=== PATIENT | female | born 1990 | race Caucasian/White ===

== ENCOUNTER 2018-09-18 19:54 | Emergency (ER) | payer SELFPAY ==
--- NOTE | 2018-09-18 20:07 | PDOC ---
Rapid Medical Evaluation Time Seen by Provider: 09/18/18 20:06 Medical Evaluation: Allergies Allergy/AdvReac Type Severity Reaction Status Date / Time No Known Allergies Allergy Verified 04/13/18 21:27 09/18/18 20:06 I performed a brief in-person evaluation of this patient. Chief complaint: RUQ pain, n/v, hx gallstones Pertinent physical exam findings: RUQ tenderness I have ordered the following: Labs, u/s Patient will proceed to the ED for further evaluation. Discharge Disposition - Diagnosis Right upper quadrant abdominal pain - Referrals - Patient Instructions - Post Discharge Activity
[2018-09-18 20:10] VITALS: TEMP 97.8; BMI 35.4
[2018-09-18 20:38] LABS: BASO % 0.5 % (0-2.0); EOS % 2.6 % (0-4.5); HEMATOCRIT 35.2 % (32.4-45.2); HEMOGLOBIN 12.4 GM/dL (10.7-15.3); MCH 27.8 pg (25.7-33.7); MCHC 35.1 g/dl (32.0-36.0); MEAN CELL VOLUME 79.1 fl (80-96); MEAN PLT VOLUME 8.2 fl (7.5-11.1); MONO % 6.6 % (3.8-10.2); NEUT % 60.3 % (42.8-82.8); PLATELET COUNT 263 K/MM3 (134-434); RBC 4.45 M/mm3 (3.60-5.2); RDW 14.4 % (11.6-15.6); WHITE BLOOD COUNT 10.4 K/mm3 (4.0-10.0)
--- NOTE | 2018-09-18 21:08 | PDOC ---
History of Present Illness - General Chief Complaint: Pain, Acute Stated Complaint: NAUSEA/VOMITING Time Seen by Provider: 09/18/18 20:06 History Source: Patient Exam Limitations: No Limitations - History of Present Illness Travel History: No Initial Comments: 09/18/18 21:30 HISTORY OF PRESENT ILLNESS: This a 28-year-old female denies medical history presents emergency department for evaluation of right upper quadrant pain after eating dinner tonight. Patient reports she has had similar pain in the past but at unremarkable evaluations for gallbladder disease. Patient reports this pain is worse than her usual pain and has lasted longer. Her usual pain lasts approximately 30 minutes this episode is been present for 2-1/2 hours. She reports having one episode of undigested food stuff vomitus. She denies fevers, chills, chest pain, shortness of breath. No recent travel or sick contacts. PAST MEDICAL HISTORY: Denies past medical history SURGICAL HISTORY: Denies ALLERGIES: No known drug allergies REVIEW OF SYSTEMS General/Constitutional: Denies fever or chills. Denies weakness, weight change. HEENT: Denies change in vision. Denies ear pain or discharge. Denies sore throat. Cardiovascular: Denies chest pain or shortness of breath. Respiratory: Denies cough, wheezing, or hemoptysis. Gastrointestinal: See HPI Genitourinary: Denies dysuria, frequency, or change in urination. Musculoskeletal: Denies joint or muscle swelling or pain. Denies neck or back pain. Skin and breasts: Denies rash or easy bruising. Neurologic: Denies headache, vertigo, loss of consciousness, or loss of sensation. Psychiatric: Denies depression or anxiety. Endocrine: Denies increased thirst. Denies abnormal weight change. Hematologic/Lymphatic: Denies anemia, easy bleeding, or history of blood clots. Allergic/Immunologic: Denies hives or skin allergy. Denies latex allergy. PHYSICAL EXAM General Appearance: Well-appearing, appropriately dressed. No apparent distress , no intoxication. Respiratory/Chest: Lungs CTAB. No shortness of breath, chest tenderness, respiratory distress, accessory muscle use. No crackles, rales, rhonchi, stridor , wheezing, dullness Cardiovascular: RRR. S1, S2. No JVD, murmur, bradycardia, tachycardia. Gastrointestinal/Abdominal: Normal bowel sounds. Abdomen soft, non-distended. No tenderness or rebound tenderness. No organomegaly, pulsatile mass, guarding, hernia, hepatomegaly, splenomegaly. Musculoskeletal/Extremities: Normal inspection. FROM of all extremities, normal capillary refill. Pelvis Stable. No CVA tenderness. No tenderness to extremities, pedal edema, swelling, erythema or deformity. Integumentary: Appropriate color, dry, warm. No cyanosis, erythema, jaundice or rash Past History - Past Medical History Allergies/Adverse Reactions: Allergies Allergy/AdvReac Type Severity Reaction Status Date / Time No Known Allergies Allergy Verified 09/18/18 20:08 Home Medications: Ambulatory Orders Naproxen 500 mg PO BID PRN #20 tablet 04/14/18 Asthma: No Cancer: No Cardiac Disorders: No COPD: No Diabetes: No GI Disorders: Yes (gallstones) HTN: No Seizures: No Thyroid Disease: No - Immunization History Immunization Up to Date: Yes - Suicide/Smoking/Psychosocial Hx Smoking History: Never smoked Have you smoked in the past 12 months: No Information on smoking cessation initiated: No Hx Alcohol Use: No Drug/Substance Use Hx: No Substance Use Type: None Hx Substance Use Treatment: No Abd/GI Specific PMHX - Complaint Specific PMHX Colitis: No Diverticulitis: No Gall Bladder Disease: No GERD: No Hepatitis: No Irritable Bowel Synd (IBS): No Pancreatitis: No GI Ulcer Disease: No *Physical Exam - Vital Signs Last Vital Signs Temp Pulse Resp BP Pulse Ox 97.8 F 78 16 126/68 100 09/18/18 20:09 09/18/18 20:09 09/18/18 20:09 09/18/18 20:09 09/18/18 20:09 Moderate Sedation - Procedure Monitoring Vital Signs: Procedure Monitoring Vital Signs Temperature 97.8 F 09/18/18 20:09 Pulse Rate 78 09/18/18 20:09 Respiratory Rate 16 09/18/18 20:09 Blood Pressure 126/68 09/18/18 20:09 O2 Sat by Pulse Oximetry (%) 100 09/18/18 20:09 ED Treatment Course - LABORATORY CBC & Chemistry Diagram: 09/18/18 20:13 09/18/18 20:13 - ADDITIONAL ORDERS Additional order review: Laboratory Results 09/18/18 20:13 Serum , Qual Negative 09/18/18 20:13 RBC 4.45 MCV 79.1 L MCHC 35.1 RDW 14.4 MPV 8.2 Neutrophils % 60.3 Lymphocytes % 30.0 Monocytes % 6.6 Eosinophils % 2.6 Basophils % 0.5 Medical Decision Making - Medical Decision Making 09/18/18 21:30 A/P: 28-year-old female with right upper quadrant pain starting approximately 30 minutes after eating a meal today. Labs, urine, ultrasound Ultrasound as read by Dr. Cline: Multiple gallbladder calculi are seen. Gallbladder appears slightly overdistended. No gallbladder wall edema or pericholecystic fluid is identified. Common bile duct diameter appears unremarkable measuring 0.5 cm. No gross intraductal calculus is identified within the limitations of transabdominal sonography. Overall, there is been no obvious interval change in comparison to a prior ultrasound study of 04/13/2018. Laboratory testing is notable for a white blood cell count 10.4 without a shift. This is likely reactive in nature. Remainder of laboratory testing is unremarkable. Given patient has a benign abdominal exam negative Arevalo's we'll discharge the patient home with referral for general surgery. *DC/Admit/Observation/Transfer Diagnosis at time of Disposition: Cholelithiases Qualifiers: Cholelithiasis location: gallbladder Cholecystitis presence: without cholecystitis Biliary obstruction: without biliary obstruction Qualified Code(s) : K80.20 - Calculus of gallbladder without cholecystitis without obstruction - Discharge Dispostion Disposition: HOME Condition at time of disposition: Fair Decision to Admit order: No - Referrals Referrals: Og Koo MD [Staff Physician] - - Patient Instructions Additional Instructions: Ultrasound of your gallbladder shows gallstones. Been given a referral for who is a general surgeon please follow-up for evaluation of gallbladder removal. Her symptoms may return if he do not access. Return to emergency department for any new or worsening pain. Thank you very much for choosing us to provide your emergent health care needs. La ecografa de smith vescula biliar muestra clculos biliares. Recibi laverne referencia para el , que es un cirujano general, kari un seguimiento para evaluar la extraccin de la vescula biliar. Stephenie sntomas pueden volver si l no accede. Regrese al departamento de emergencias para cualquier dolor nuevo o que empeore. Muchas miguel angel por elegirnos para satisfacer stephenie necesidades de atencin mdica de emergencia. - Post Discharge Activity
[2018-09-18 21:10] LABS: ALBUMIN 3.6 g/dl (3.4-5.0); ALK PHOS 91 U/L (45-117); ANION GAP 9 MMOL/L (8-16); BILIRUBIN,TOTAL 0.3 mg/dL (0.2-1); BLOOD UREA NITROGEN 8 mg/dL (7-18); CALCIUM 8.6 mg/dL (8.5-10.1); CHLORIDE 101 mmol/L (98-107); CO2 26 mmol/L (21-32); CREATININE 0.6 mg/dL (0.55-1.3); GLUCOSE,RANDOM 95 mg/dL (74-106); LIPASE 204 U/L (73-393); POTASSIUM 3.7 mmol/L (3.5-5.1); SGOT/AST 20 U/L (15-37); SGPT/ALT 27 U/L (13-61); SODIUM 136 mmol/L (136-145)
[2018-09-18] MEDS ORDERED: LIDOCAINE VISCOUS 2% ORAL/TOP 20 ML UNIT-DOSE CUP PO ONE (21:31)
[2018-09-18] MEDS ORDERED: MAG HYDROX/AL HYDROX/SIMETH 30 ML UNIT-DOSE CUP PO ONE (21:31)
[2018-09-18] MEDS ORDERED: MAG HYDROX/AL HYDROX/SIMETH 30 ML UNIT-DOSE CUP ONE (21:36)
[2018-09-18] MEDS ORDERED: LIDOCAINE VISCOUS 2% ORAL/TOP 20 ML UNIT-DOSE CUP ONE (21:36)
[2018-09-18] MEDS ORDERED: ACETAMINOPHEN 325 MG TABLET (FP) ONE (21:40)
[2018-09-18] MEDS ORDERED: ACETAMINOPHEN 500 MG TABLET (FP) PO ONE (21:43)
[2018-09-18 22:18] VITALS: BP 124/64; PULSE 74
== END 2018-09-18 22:31 | disposition home or self-care (01) ==
LOC: JER 19:54
DX: K80.20 Calculus of gallbladder without cholecystitis without obstruction (principal)
CPT/HCPCS: 36415; 76705-TC; 80053; 83690; 84703; 85025; 99282-25